=== PATIENT | female | born 1965 | race Caucasian/White ===

== ENCOUNTER → 2017-02-22 | Outpatient (CLI) | payer BC ==
[~2017-02-22] MED LIST: ADVIL PM PO; GADAVIST IV PRN; SYN100 PO
--- NOTE | 2017-02-23 08:02 | MAMMOGRAPHY REPORT ---
THIS REPORT HAS BEEN AMENDED. BREAST MRI OF BOTH BREASTS : 02/22/2017 CLINICAL HISTORY: 51-year-old woman presents for a follow-up breast MRI. Based on the 07/08/2016 debbie gnostic mammograms, she was being followed for microcalcifications in the upper outer posterior left breast. At that time a new area of subtle architectural distortion was identified in the right breas t but no sonographic correlate was seen. An MRI was performed which demonstrated a small area of enh ancement thought to correlate with the distortion. This was biopsied with MRI guidance and yielded a radial scar. Surgical excision was recommended. COMPARISON: Comparison is made to exams dated: 08/13/2016 mammogram, 08/13/2016 MRI biopsy, 07/15/2016 breast MRI, 07/08/2016 ultrasound, 07/08/2016 mammogram, and 01/07/2016 mammogram - [facility]. TECHNIQUE: Using a 1.5 Ambreen magnet and dedicated breast coil, multisequence axial images were obtain ed through the breasts. After uneventful IV administration of 6 mL of Gadavist, dynamic multiphase c ontrast-enhanced axial images, and sagittal postcontrast were obtained. Temporal subtraction axial i mages and 3-D MIP images are provided. Everything was then reviewed on a 3-D workstation, Miew. FINDINGS: Right breast: There is a round area of susceptibility artifact in the 3:00 middle one third of the ri ght breast, at the site of prior MRI guided biopsy which yielded a radial scar. Based on the MRI ezra earance, it does not appear as though surgical excision has been performed in the right breast. Curr ently, there is minimal background parenchymal enhancement. The degree of background enhancement has decreased compared to the prior MRI. There is currently no significant enhancement surrounding the biopsy marker in the right breast. No other new suspicious enhancing mass, non-mass enhancement or s uspicious kinetics are identified in the right breast. There is an intramammary lymph node in the 9: 00 posterior right breast. Left breast: There is a round area of susceptibility artifact in the upper outer posterior, approxima te 1:00, left breast, which is new comparing to the available imaging at this institution. Presumabl y this may represent sampling of the microcalcifications which were being followed with spot magnific ation views. The previously described 4 x 5 x 6 mm focus of enhancement in the 12:00 to 1:00 anterio r left breast has decreased in size and conspicuity compared to the prior breast MRI. It currently m easures 4.1 x 3.8 x 4.3 mm (axial image 64/114), and demonstrates no suspicious kinetics. No other n ew suspicious enhancing mass, non-mass enhancement or suspicious kinetics are seen in the left breast . No axillary adenopathy bilaterally. IMPRESSION: ACR BI-RADS CATEGORY 0: INCOMPLETE EVALUATION: NEED ADDITIONAL IMAGING EVALUATION 1. A biopsy marker clip remains within the right breast at the site of the biopsy-proven radial scar . It is unclear if the patient has undergone surgical consultation; based on the MRI it does not ezra ear as though surgical excision has been performed. Therefore, if not already performed, surgical co nsultation is recommended. 2. A small focus of enhancement within the 12:00 to 1:00 anterior left breast is decreased in size a nd conspicuity compared to the prior MRI, suggesting benignity. However, it remains the only discret e focus of enhancement within the left breast and another 12 month follow-up breast MRI is recommende d to ensure longer stability. 3. Susceptibility artifact is seen in the 1:00 posterior left breast, likely representing a new biop sy marker clip. This was not present on the prior imaging available at our institution and pathology results as well as any outside imaging exams will be requested. 4. If the punctate microcalcifications in the upper outer quadrant of the left breast were sampled a nd yielded benign pathology, then no further close follow-up will be needed regarding those microcalc ifications. If outside imaging and pathology reports are obtained, an addendum will be made to this report. Otherwise, if the microcalcifications were not sampled, would recommend repeat spot magnific ation views at the time of annual bilateral mammography in July 2017. The patient will be called to schedule an appointment. Purnima Palomino M.D. ay/:02/22/2017 22:00:40 Watermaster: lace cutter, [facility] letter sent: Need Priors 0 BI-RADS Code: ACR BI-RADS Category 0: Incomplete Evaluation: Need Additional Imaging Evaluation AMENDMENT: 03/04/2017 Purnima Palomino M.D. Outside second opinion reports and consultations from [facility] were reviewed . Based on the report from Ninoska Claros, in the section labeled "plan", this physician discussed t hat the radial scar is most likely completely excised, therefore surgical excision would not be warra ntadolfo. She did however recommend a stereotactic biopsy of the microcalcifications in the contralatera l breast. The patient underwent a left breast stereotactic biopsy of the microcalcifications and pre sumably pathology was benign. Based on radiologist recommendations, they recommended continued surveillance of right breast microca lcifications with bilateral diagnostic mammograms in 12 months and also recommended one final diagnos tic mammogram of the left breast 2:00 region in approximately 1 year, as some of these were biopsied and that would prove greater than 2 years of imaging stability. 1. When combining the outside information and outside consultations with the current MRI exam, there is no need for repeat consultation regarding the radial scar. The outside surgeon deemed that area c ompletely excised. 2. There was another small focus of enhancement in the 12:00 to 1:00 anterior le ft breast for which another 12 month follow-up bilateral breast MRI was recommended to ensure longer stability. 3. The susceptibility artifact in the 1:00 to 2:00 posterior left breast does represent biopsy of microcalcifications, presumably pathology was benign. As per outside recommendations, anot her follow-up to ensure longer stability after the biopsy was recommended. Overall assessment is annual bilateral mammography which is due in July 2017, to include bilatera l spot magnification views and tomosynthesis images, and a 12 month follow-up breast MRI due in February 2018. Amended BI-RADS: ACR-BI-RADS Category 3: Probably Benign letter sent: Follow Up Recommended 3
== END | disposition home or self-care (01) ==
LOC: C.MRI 10:11
PROVIDERS: ATTEND Obstetrics & Gynecology
DX: N63 Unspecified lump in breast (principal); R92.8 Other abnormal and inconclusive findings on diagnostic imaging of breast

== ENCOUNTER → 2017-08-30 | Outpatient (CLI) | payer BC ==
[~2017-08-30] MED LIST changes: -GADAVIST IV PRN
== END | disposition home or self-care (01) ==
LOC: C.PAPS 16:42
PROVIDERS: ATTEND Obstetrics & Gynecology
DX: Z01.419 Encounter for gynecological examination (general) (routine) without abnormal findings (principal)

== ENCOUNTER → 2017-09-03 | Outpatient (CLI) | payer BC ==
--- NOTE | 2017-09-03 15:33 | MAMMOGRAPHY REPORT ---
BILATERAL DIGITAL DIAGNOSTIC MAMMOGRAM TOMOSYNTHESIS WITH CAD: 09/03/2017 CLINICAL HISTORY: The patient presents for follow-up after a benign stereotactic biopsy of left breas t calcifications performed at an outside institution. She also underwent an MRI guided core needle b iopsy of architectural distortion in the right medial breast which yielded a radial scar. The patien t underwent surgical consultation and the decision was made not to undergo surgical excision. The pa makenna reports no current complaints. TECHNIQUE: Breast tomosynthesis in addition to standard 2D mammography was performed. Current study was also evaluated with a Computer Aided Detection (CAD) system. Bilateral CC and MLO 2-D and tomosy nthesis images and spot magnification right cc and ML views were obtained. COMPARISON: Comparison is made to exams dated: 02/22/2017 breast MRI, 08/13/2016 mammogram, 07/08/2016 mammogram, 07/03/2015 mammogram, 05/25/2014 mammogram, and 05/09/2013 mammogram - [facility]. BREAST COMPOSITION: The tissue of both breasts is heterogeneously dense, which may obscure small mas ses. FINDINGS: Spot magnification views of the left breast demonstrate a new biopsy marker clip in the le ft upper outer quadrant from prior benign stereotactic biopsy. Residual calcifications adjacent to t he biopsy marker clip do not appear significantly changed. There is a small 2 mm cluster of approximately faint 3-4 calcifications seen within the right superio r posterior breast, thought to project laterally on the cc view. The calcifications are very faint b ut were not clearly present on prior mammograms. Recommend follow-up diagnostic mammograms in 6 deena hs to ensure stability. The remainder of both breasts are stable compared to prior exams, without suspicious masses, calcific ations, or areas of architectural distortion noted. A biopsy marker clip is again noted within the b iopsied area of architectural distortion within the right 9:00 breast which showed a radial scar. Ot her scattered bilateral benign-appearing calcifications are not significantly changed. Oval circumsc ribed benign-appearing mass in the right lateral breast is stable. IMPRESSION: ACR-BI-RADS CATEGORY 3: PROBABLY BENIGN 1. Status post benign left breast stereotactic biopsy. Residual calcifications at the biopsy site i n the left upper outer quadrant are stable compared to prior exams and are considered benign given th e stability and benign pathology on biopsy. 2. Newly visualized small 3 mm cluster of calcifications in the right upper outer quadrant. The blank cifications are probably benign and recommend follow-up diagnostic tomosynthesis mammograms in 6 deena hs to confirm stability on spot magnification views. 3. The previously biopsied area of architectural distortion in the right 9:00 breast is stable mammog raphically compared to prior exams. Pathology on core needle biopsy yielded a radial scar; she consu lted with a surgeon and the decision was made not to undergo surgical excision. This area can be haritha ssessed at the time of the six-month follow-up. 4. Note that the patient will also be due for follow-up bilateral breast MRI February 2018. The patient has been verbally notified of the results. Approximately 10% of breast cancers are not detected with mammography. A negative mammographic report should not delay biopsy if a clinically suggestive mass is present. Breonna Santos M.D. ah/:09/03/2017 12:31:50 Procurement Forester: Luis Antonio UGARTE(Jeffrey)(Cynthia), [facility] letter sent: Follow Up Recommended 3 BI-RADS Code: ACR-BI-RADS Category 3: Probably Benign
== END | disposition home or self-care (01) ==
LOC: C.MAMM 08:55
PROVIDERS: ATTEND Obstetrics & Gynecology
DX: R92.1 Mammographic calcification found on diagnostic imaging of breast (principal)

== ENCOUNTER → 2017-09-08 | Outpatient (CLI) | payer BC ==
[~2017-09-08] MED LIST changes: +LEVO125T72 PO
== END | disposition home or self-care (01) ==
LOC: C.LAB1850 13:50
PROVIDERS: ATTEND Obstetrics & Gynecology
DX: E03.9 Hypothyroidism, unspecified (principal)

== ENCOUNTER → 2017-11-15 | Outpatient (CLI) | payer OTHER ==
[~2017-11-15] MED LIST changes: -LEVO125T72 PO
== END | disposition home or self-care (01) ==
LOC: C.LABMFLN 10:28
PROVIDERS: ATTEND Physician Assistant
DX: E03.9 Hypothyroidism, unspecified (principal)

== ENCOUNTER 2018-01-10 12:41 | Emergency (ER) | payer OTHER ==
[~2018-01-10] VITALS: Ht 165.1 cm; Wt 62.6 kg
[2018-01-10 12:45] VITALS: TEMP 36.5; Ht 165.1 cm; Wt 62.6 kg
[2018-01-10] MEDS ORDERED: SODIUM CHLORIDE 0.9% 1000ML 2,000 ML IV STA (12:59)
[2018-01-10] MEDS ORDERED: DiphenhydrAMINE HCL 50 MG/ML VIAL IV STA (12:59)
[2018-01-10] MEDS ORDERED: METOCLOPRAMIDE HCL INJ 5 MG/ML 2 ML VIAL IV STA (12:59)
[2018-01-10] MEDS ORDERED: METOCLOPRAMIDE HCL INJ 5 MG/ML 2 ML VIAL ONE (13:12)
--- NOTE | 2018-01-10 13:13 | EMERGENCY ROOM VISIT NOTE ---
History Report prepared by Kristie: Trevon Pelletier Under the Supervision of: Dr. Sourav Graham M.D. First contact with patient: 12:53 Chief Complaint: DIZZY Stated Complaint: DIZZY, NAUSEA, LIGHTHEADED History of Present Illness The patient is a 52 year old female who presents to the Emergency Room with complaints of worsening dizziness for the past week. She notes that the dizziness is worsened with exertion and movement. The patient states that she has been light headed, and today it felt like the room was spinning, and she has a headache, and her face feels tingly. She additionally notes that she has been nauseous, and she states that last week she was having a fever after having an EGD and colonoscopy. She states that she had the colonoscopy for polyps, and she had an EGD for Celiac testing, and she states that she had a chest x-ray last week after the procedures. She additionally notes that she has thyroid issues. The patient denies any cough, congestion, chest pain, shortness of breath, burning with urination, hematuria, and diarrhea. She states that she does not have a history of dizziness, and she states that she does not smoke, and she occasionally drinks alcohol. The patient states that she has not had regular menstrual cycles, and she has been having hot flashes and other menopause symptoms, though she states that this currently feels different than usual. The patient states that she takes levothyroxine for her thyroid though nothing else. Source of History: patient Onset: the past week Position: other (generalized) Quality: other (dizziness) Timing: worsening Modifying Factors (Worsening): exertion, movement Associated Symptoms: + headache, + nausea, No cough, No chest pain, No SOB, No diarrhea Note: Associated symptoms: face is tingly Review of Systems See HPI for pertinent positives and negatives. A total of ten systems were reviewed and were otherwise negative. Past Medical & Surgical Medical Problems: (1) Colon polyps (2) Thyroid disease Social History Smoking Status: Never Smoker Marital Status: Housing Status: lives with family Current/Historical Medications Scheduled Levothyroxine Sodium (Synthroid), 125 MCG PO DAILY Allergies Coded Allergies: Sulfa Drugs (Verified Allergy, Unknown, 01/10/18) Physical Exam Vital Signs Date Time Temp Pulse Resp B/P (MAP) Pulse Ox O2 Delivery O2 Flow Rate FiO2 01/10/18 16:03 73 16 121/71 98 01/10/18 14:41 64 18 126/67 100 Room Air 01/10/18 13:42 66 18 141/81 100 Room Air 01/10/18 13:31 64 01/10/18 13:29 62 18 131/67 99 Room Air 67 136/72 86 141/81 01/10/18 12:45 36.5 84 18 156/87 99 Room Air Physical Exam GENERAL: Awake, alert, anxious-appearing, in no distress HENT: Normocephalic, atraumatic. Dry mucous membranes. Oropharynx otherwise unremarkable. EYES: Normal conjunctiva. Sclera non-icteric. NECK: Supple. No nuchal rigidity. FROM. No JVD. RESPIRATORY: Clear to auscultation. CARDIAC: Regular rate, normal rhythm. Extremities warm and well perfused. Pulses equal. ABDOMEN: Soft, non-distended. No tenderness to palpation. No rebound or guarding. No masses. RECTAL: Deferred. MUSCULOSKELETAL: Chest examination reveals no tenderness. The back is symmetrical on inspection without obvious abnormality. There is no CVA tenderness to palpation. No joint edema. LOWER EXTREMITIES: Calves are equal size bilaterally and non-tender. No edema. No discoloration. NEURO: Normal sensorium. No sensory or motor deficits noted. Normal cerebellar function with ztftwj-df-qiwc, alternating palms, qzjp-cj-djor. SKIN: No rash or jaundice noted. Medical Decision & Procedures ER Provider Diagnostic Interpretation: Radiology results as stated below per my review and radiologist interpretation: CHEST ONE VIEW PORTABLE CLINICAL HISTORY: 52 years-old Female presenting with ABDOMINAL PAIN/GI. TECHNIQUE: Portable upright AP view of the chest was obtained. COMPARISON: . FINDINGS: Atherosclerosis of the aortic arch. Cardiac silhouette normal in size. Calcified granulomas may be present. No focal opacity. No large effusion or pneumothorax. Osseous structures normal. Calcification or biopsy clip may be present in the left breast. IMPRESSION: 1. No acute cardiopulmonary disease. Electronically signed by: Rafael Rivera M.D. 01/10/2018 1:29 PM Dictated Date/Time: 01/10/2018 1:27 PM Laboratory Results 01/10/18 13:15 Red Blood Count 4.17, Mean Corpuscular Volume 86.3, Mean Corpuscular Hemoglobin 30.2, Mean Corpuscular Hemoglobin Concent 35.0, Mean Platelet Volume 8.9, Neutrophils (%) (Auto) 41.7, Lymphocytes (%) (Auto) 45.6, Monocytes (%) (Auto) 10.0, Eosinophils (%) (Auto) 1.8, Basophils (%) (Auto) 0.9, Neutrophils # (Auto ) 1.88, Lymphocytes # (Auto) 2.05, Monocytes # (Auto) 0.45, Eosinophils # (Auto ) 0.08, Basophils # (Auto) 0.04 01/10/18 13:15 Test 01/10/18 13:15 01/10/18 13:39 01/10/18 14:35 White Blood Count 4.50 K/uL (4.8-10.8) Red Blood Count 4.17 M/uL (4.2-5.4) Hemoglobin 12.6 g/dL (12.0-16.0) Hematocrit 36.0 % (37-47) Mean Corpuscular Volume 86.3 fL (80-100) Mean Corpuscular Hemoglobin 30.2 pg (25-34) Mean Corpuscular Hemoglobin Concent 35.0 g/dl (32-36) Platelet Count 243 K/uL (130-400) Mean Platelet Volume 8.9 fL (7.4-10.4) Neutrophils (%) (Auto) 41.7 % Lymphocytes (%) (Auto) 45.6 % Monocytes (%) (Auto) 10.0 % Eosinophils (%) (Auto) 1.8 % Basophils (%) (Auto) 0.9 % Neutrophils # (Auto) 1.88 K/uL (1.4-6.5) Lymphocytes # (Auto) 2.05 K/uL (1.2-3.4) Monocytes # (Auto) 0.45 K/uL (0.11-0.59) Eosinophils # (Auto) 0.08 K/uL (0-0.5) Basophils # (Auto) 0.04 K/uL (0-0.2) RDW Standard Deviation 40.5 fL (36.4-46.3) RDW Coefficient of Variation 12.6 % (11.5-14.5) Immature Granulocyte % (Auto) 0.0 % Immature Granulocyte # (Auto) 0.00 K/uL (0.00-0.02) Anion Gap 7.0 mmol/L (3-11) Est Creatinine Clear Calc Drug Dose 81.8 ml/min Estimated GFR () 109.5 Estimated GFR (Non- 94.5 BUN/Creatinine Ratio 22.5 (10-20) Calcium Level 9.0 mg/dl (8.5-10.1) Phosphorus Level 3.0 mg/dl (2.5-4.9) Magnesium Level 2.1 mg/dl (1.8-2.4) Total Bilirubin 0.4 mg/dl (0.2-1) Direct Bilirubin 0.1 mg/dl (0-0.2) Aspartate Amino Transf (AST/SGOT) 28 U/L (15-37) Alanine Aminotransferase (ALT/SGPT) 28 U/L (12-78) Alkaline Phosphatase 59 U/L (45-117) Troponin I < 0.015 ng/ml (0-0.045) Total Protein 7.5 gm/dl (6.4-8.2) Albumin 3.8 gm/dl (3.4-5.0) Lipase 101 U/L (73-393) Thyroid Stimulating Hormone (TSH) 0.269 uIu/ml (0.300-4.500) Free Thyroxine 1.30 ng/dl (0.80-1.60) Influenza Type A (RT-PCR) Neg for Influ A (NEG) Influenza Type B (RT-PCR) Neg for Influ B (NEG) Urine Color YELLOW Urine Appearance CLEAR (CLEAR) Urine pH 5.0 (4.5-7.5) Urine Specific [place] 1.012 (1.000-1.030) Urine Protein NEG (NEG) Urine Glucose (UA) NEG (NEG) Urine Ketones NEG (NEG) Urine Occult Blood NEG (NEG) Urine Nitrite NEG (NEG) Urine Bilirubin NEG (NEG) Urine Urobilinogen NEG (NEG) Urine Leukocyte Esterase NEG (NEG) Urine Test NEG (NEG) Laboratory results reviewed by me Medications Administered Medications (Trade) Dose Ordered Sig/Ron Route Start Time Stop Time Status Last Admin Dose Admin Sodium Chloride 2,000 ml @ 999 mls/hr Q2H1M STAT IV 01/10/18 12:59 01/10/18 14:59 DC 01/10/18 13:35 999 MLS/HR Metoclopramide HCl (Reglan Inj) 10 mg NOW STAT IV 01/10/18 12:59 01/10/18 13:07 DC 01/10/18 13:36 10 MG Diphenhydramine HCl (Benadryl Inj) 25 mg NOW STAT IV 01/10/18 12:59 01/10/18 13:07 DC 01/10/18 13:35 25 MG ECG Per My Interpretation Indication: other (dizziness) Rate (beats per minute): 62 Rhythm: normal sinus Findings: no acute ischemic change, other (normal axis) ED Course 1253: The patient was evaluated in room B6. A complete history and physical exam was performed. 1522: I reevaluated the patient, and she was feeling a little better. Discussed results and discharge instructions: she verbalized understanding and agreement. The patient is ready for discharge. Medical Decision I reviewed the patient's past medical history, medications, and the nursing notes as described above. Differential diagnosis: Etiologies such as metabolic, infection, hypo/hyperglycemia, electrolyte abnormalities, cardiac sources, intracerebral event, toxicologic, neurologic, as well as others were entertained. The patient is a 52-year-old woman with past medical history of hypothyroidism and currently perimenopausal who presents emergency department with generalized weakness and lightheadedness per hpi. On arrival the patient is fatigued appearing but no acute distress, afebrile stable vital signs. She is neuro intact including normal cerebellar function with lxwfuc-hx-nziq, alternating palms, ztux-az-kgoa. BUN/CR> 20 digesting mild dehydration. WBC 4.5 nonspecific. Labs otherwise unremarkable. EKG unremarkable. Chest x-ray negative. Patient feeling improved after Reglan, Benadryl and IV fluid hydration with improvement in blood pressure from 150s/80s to 120s/70s. Symptoms most likely related to mild dehydration. Given the patient's improvement and reassuring exam no indication for head imaging at this time. Plan for PCP follow-up. Findings and plan for follow-up reviewed with patient. Patient agreeable and d/c'd per discharge instructions. Medication Reconcilliation Current Medication List: was personally reviewed by me Blood Pressure Screening Patient's blood pressure: Elevated blood pressure Blood pressure disposition: Referred to PCP Impression Primary Impression: Dehydration Additional Impression: Lightheadedness Scribe Attestation The scribe's documentation has been prepared under my direction and personally reviewed by me in its entirety. I confirm that the note above accurately reflects all work, treatment, procedures, and medical decision making performed by me. Departure Information Dispostion Home / Self-Care Referrals Giacomo Moise M.D. (PCP) Forms HOME CARE DOCUMENTATION FORM, IMPORTANT VISIT INFORMATION Patient Instructions ED Dehydration, ED Dizziness O, [facility] Additional Instructions Please follow up with your primary care physician in the next 1-3 days for re- evaluation. Your symptoms are most likely due to mild dehydration. Otherwise, your exam, EKG, chest xray, and lab results did not show signs of an emergent condition at this time. Drink plenty of fluids to ensure hydration. Return to the emergency department for worsening symptoms as described in the accompanying instructions. Problem Qualifiers
[2018-01-10] MEDS ORDERED: LEVO125T72 PO (13:14)
[2018-01-10 13:28] LABS: BASO % 0.9 %; BASO ABS # 0.04 K/uL (0-0.2); EOS % 1.8 %; EOS ABS # 0.08 K/uL (0-0.5); HEMOGLOBIN 12.6 g/dL (12.0-16.0); LYMPH % 45.6 %; LYMPH ABS # 2.05 K/uL (1.2-3.4); MEAN CELL VOLUME 86.3 fL (80-100); MEAN CORPUSCULAR HEMOGLOBIN 30.2 pg (25-34); MEAN PLATELET VOLUME 8.9 fL (7.4-10.4); MONO ABS # 0.45 K/uL (0.11-0.59); NEUT % 41.7 %; NEUT ABS # 1.88 K/uL (1.4-6.5); PLATELET COUNT 243 K/uL (130-400); RED CELL DISTRIBUTION WIDTH CV 12.6 % (11.5-14.5); RED CELL DISTRIBUTION WIDTH SD 40.5 fL (36.4-46.3)
--- NOTE | 2018-01-10 13:30 | DIAGNOSTIC IMAGING REPORT ---
CHEST ONE VIEW PORTABLE CLINICAL HISTORY: 52 years-old Female presenting with ABDOMINAL PAIN/GI. TECHNIQUE: Portable upright AP view of the chest was obtained. COMPARISON: . FINDINGS: Atherosclerosis of the aortic arch. Cardiac silhouette normal in size. Calcified granulomas may be present. No focal opacity. No large effusion or pneumothorax. Osseous structures normal. Calcification or biopsy clip may be present in the left breast. IMPRESSION: 1. No acute cardiopulmonary disease. Electronically signed by: Rafael Rivera M.D. 01/10/2018 1:29 PM Dictated Date/Time: 01/10/2018 1:27 PM
[2018-01-10 13:48] LABS: ALBUMIN 3.8 gm/dl (3.4-5.0); ALT/SGPT 28 U/L (12-78); AST/SGOT 28 U/L (15-37); BLOOD UREA NITROGEN 17 mg/dl (7-18); CARBON DIOXIDE 24 mmol/L (21-32); CREATININE 0.74 mg/dl (0.60-1.20); GLUCOSE 105 mg/dl (70-99); LIPASE 101 U/L (73-393); POTASSIUM 3.7 mmol/L (3.5-5.1); SODIUM 139 mmol/L (136-145)
[2018-01-10 13:56] LABS: ALKALINE PHOSPHATASE 59 U/L (45-117); TOTAL PROTEIN 7.5 gm/dl (6.4-8.2)
[2018-01-10 14:49] LABS: INFLUENZA A PCR Neg for Influ A (NEG); INFLUENZA B PCR Neg for Influ B (NEG)
[2018-01-10 16:03] VITALS: BP 121/71; PULSE 73; O2SAT 98
== END 2018-01-10 16:03 | disposition home or self-care (01) ==
LOC: C.EDB 12:42
DX: E86.0 Dehydration (principal); Z79.899 Other long term (current) drug therapy; E03.9 Hypothyroidism, unspecified; Z86.010 Personal history of colon polyps; Z88.2 Allergy status to sulfonamides

== ENCOUNTER → 2018-04-22 | Outpatient (CLI) | payer OTHER ==
[~2018-04-22] MED LIST changes: -ADVIL PM PO; +LEVO125T72 PO; -SYN100 PO
--- NOTE | 2018-04-22 10:52 | DIAGNOSTIC IMAGING REPORT ---
THYROID ULTRASOUND HISTORY: M54.2 Anterior neck pain [id number] COMPARISON: None. FINDINGS: Right lobe: 3.3 x 0.8 x 0.8 cm. Hypoechoic and hypervascular. No nodules. Left lobe: 2.7 x 0.7 x 0.6 cm. Hypoechoic and hypervascular. Isthmus: 1 mm thickness. No nodules. Miscellaneous: Additional imaging within the left neck/supraclavicular location was performed. No sonographic abnormality. No fluid collections, masses, or enlarged lymph nodes identified. IMPRESSION: 1. No sonographic abnormality within the left neck. 2. There is an atrophic, hypoechoic, and hypervascular thyroid gland. This raises the possibility of a chronic thyroiditis. Electronically signed by: Maximino Agustin M.D. 04/22/2018 10:51 AM Dictated Date/Time: 04/22/2018 10:49 AM
== END | disposition home or self-care (01) ==
LOC: C.ULTR 09:39
PROVIDERS: ATTEND Physician Assistant Medical
DX: M54.2 Cervicalgia (principal)

== ENCOUNTER → 2018-04-27 | Outpatient (CLI) | payer OTHER | END | disposition home or self-care (01) | LOC: C.LABMFLN 13:24 | PROVIDERS: ATTEND Physician Assistant | DX: E03.9 Hypothyroidism, unspecified (principal) ==